=== PATIENT | male | born 1955 | race Caucasian/White ===

== ENCOUNTER 2020-08-30 13:03 | Emergency (ER) | payer MEDICAID, MEDICARE, OTHER ==
[~2020-08-30] VITALS: Ht 167.6 cm; Wt 50.3 kg
--- NOTE | 2020-08-30 13:15 | NUR ---
BIB [facility], C/O OF VISUAL HALLUCINATION, AND HAS NOT TAKEN MEDICATION OR EATEN X3 DAYS. A&OX4. AMBULATORY. 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 L2K NOT INTIATED AT THIS POINT. PT LIVES AT HOME WITH DAUGHTER AFTER PREVIOUS FACILITY CLOSED AND SHE HAS BEEN TAKING CARE OF HIM. PER [facility] DAUGHTER IS HOPING THEY CAN FIND HIM PLACEMENT. VSS. EKG COMPLETED. PT PLACED ON MONITORS. NADN. RESTING IN GURNEY, SIDERAIL UP X2. DURING INTAKE PT DENIES SI, REPORTS AH WITH VOICES TELLING HIM TO HURT OTHER PEOPLE WITH NO FURTHER DISCUSSION PT SAID HE DID NOT WANT TO TALK ABOUT IT. DURING INITIAL CONTACT PT HAD NO EYE CONTACT AND REPLIED MOSTLY WITH YES/NO ANSWERS. REPORT PROVIDED TO OLGA.
--- NOTE | 2020-08-30 13:24 | NUR ---
assumed care of pt. report from Rajwinder RDZ. pt here for FTT and auditory hallucinations per report. per report, pt was initially c/o auditory hallucinations that were telling him to harm others, but pt now states to med student at bedside that he is feeling depressed and feeling like he wants to harm himself but has no plan. pt reports that he has been feeling depressed for months per report, pt was in an assisted living facility that closed and is now living wiht his daughter who stated to paramedics that he has not been eating unless she feeds him and has not been taking his meds for 3 days. per report, pt has a hx of schizophrenia pt resting on gurney, warm blankets in place. no family at bedside. med student at bedside for melanie
--- NOTE | 2020-08-30 13:30 | NUR ---
meal tray has been delivered. pt is eating without assistance. when asked why he has not been eating at home, pt states "I didn't like it" pt reports that he is feeling depressed and that he is havinbg thoughts of harming himself, but has no plan. pt knows his name and the day of the week, knows the year, the current president and the town that he is in, but does not know the month or the date. report that he is hearing voices sitting up on gurney in no apparent distress
--- NOTE | 2020-08-30 14:00 | NUR ---
sitter at bedside for pt safety. pt sitting up on gurney in no apparent distress
[2020-08-30 14:07] LABS: BASOPHILS % (AUTO) 1 % (0-1); EOSINOPHILS % (AUTO) 0 % (1-7); LYMPHOCYTES % (AUTO) 35 % (22-44); MEAN CORPUSCULAR HEMOGLOBIN 32.4 pg (27.5-34.5); MONOCYTES % (AUTO) 8 % (2-9); NEUTROPHILS % (AUTO) 56 % (42-75); PLATELET COUNT 264 x10^3/uL (130-400); RED BLOOD COUNT 4.45 x10^6/uL (4.38-5.82); RED CELL DISTRIBUTION WIDTH 13.7 % (9.4-14.8)
[2020-08-30 14:08] LABS: MD NO
[2020-08-30 14:16] LABS: ALBUMIN 3.1 g/dL (3.4-5.0); ANION GAP 5 mmol/L (5-15); CALCIUM 8.4 mg/dL (8.5-10.1); CHLORIDE 108 mmol/L (98-107); SALICYLATE LEVEL 5.2 mg/dL (2.8-20.0)
--- NOTE | 2020-08-30 14:20 | NUR ---
Dr. Chowdhury at bedside for eval
[2020-08-30 14:28] LABS: ALANINE AMINOTRANSFERASE 17 U/L (12-78); ALKALINE PHOSPHATASE 125 U/L (45-117); BILIRUBIN,TOTAL 0.6 mg/dL (0.2-1.0); CREATININE 0.87 mg/dL (0.7-1.3); TOTAL PROTEIN 6.3 g/dL (6.4-8.2)
--- NOTE | 2020-08-30 14:30 | NUR ---
COVID swab has been collected attempted to get urine sample from pt. pt states "I don't have a penis" oriented pt to his anatomy. pt attempted to give urine sample, unable at this time. urinal at bedside pt sitting up on gurney in no apparent distress. sitter present for safety
--- NOTE | 2020-08-30 14:38 | NUR ---
Nuria, psych BAND TUMBLER at bedside for eval
--- NOTE | 2020-08-30 14:45 | NUR ---
Nuria and ARON Savage at bedside for pt evaluation
[2020-08-30] MEDS ORDERED: SERTRALINE 50MG TABLET PO SCH (15:00)
[2020-08-30] MEDS ORDERED: HYDROXYZINE PAMOATE 50MG CAP PO PRN (15:00)
--- NOTE | 2020-08-30 15:15 | NUR ---
pt is now on a legal hold. belongings secured. sitter present for safety
--- NOTE | 2020-08-30 16:06 | NUR ---
no changes. pt sitting up on gurney in no apparent distress. sitter present for safety
--- NOTE | 2020-08-30 16:31 | NUR ---
AMAURY RN: PACKET FAXED TO [facility], CONFIRMATION RECEIVED.
[2020-08-30] MEDS ORDERED: SERTRALINE 50MG TABLET ONE (17:25)
[2020-08-30 17:27] VITALS: BP 116/63
--- NOTE | 2020-08-30 17:29 | NUR ---
pt resting on gurney in posiiton of comfort with eyes closed. easilt arousable. pt has been medicated per order pt has been accepted to [facility]. pt updated on POC.
[2020-08-30] MEDS ORDERED: OLAN20TA14 PO (18:15)
[2020-08-30] MEDS ORDERED: BENZ1TAB61 PO (18:15)
[2020-08-30] MEDS ORDERED: SERT50TA28 PO (18:15)
[2020-08-30] MEDS ORDERED: HYDR25CA PO (18:15)
[2020-08-30] MEDS ORDERED: OLANZAPINE 10 MG TABLET PO SCH (21:00)
[2020-08-30] MEDS ORDERED: BENZTROPINE 1 MG TABLET PO SCH (21:00)
[2020-08-31] MEDS ORDERED: TRAZ50TA66 PO (11:49)
[2020-08-31] MEDS ORDERED: CYAN-27 PO (11:49)
[2020-08-31] MEDS ORDERED: ERGO500017 PO (11:49)
== END 2020-08-30 17:49 ==
LOC: ED 15:29
DX: R45.851 Suicidal ideations (principal); Z20.822 Contact with and (suspected) exposure to COVID-19; F20.9 Schizophrenia, unspecified; R94.31 Abnormal electrocardiogram [ECG] [EKG]; Z91.14 Patient's other noncompliance with medication regimen
CPT/HCPCS: 36415; 80053; 80299; 80320; 80329; 84443; 85025; 87635; 93005; 99285; G0480